=== PATIENT | male | born 1995 ===

== ENCOUNTER 2022-03-12 11:04 | Emergency (ER) | payer BC, OTHER, SELFPAY ==
--- NOTE | ~2022-03-12 | XR_ITS ---
XR foot LT min 3V 03/12/2022 11:30 Indication: Trauma to the left foot Procedure: 4 views left foot Comparison: No prior studies for comparison. Findings: Possible nondisplaced fracture proximal aspect of the first metatarsal. Correlate for point tenderness no significant soft tissue abnormality. Lisfranc joint intact. No foreign bodies. Impression: 1: Possible nondisplaced fracture base of the left first metatarsal. Correlate for point tenderness. Reviewed, dictated and finalized at location A. Impression: 1: Possible nondisplaced fracture base of the left first metatarsal. Correlate for point tenderness.
[2022-03-12 11:16] VITALS: BP 135/82; PULSE 95; RESP 20; TEMP 36.3; O2SAT 99
--- NOTE | 2022-03-12 11:40 | ED.GENADULT ---
HPI - General Adult General Chief complaint: Extremity Injury, Lower Stated complaint: Lt Foot Pain History of Present Illness HPI narrative: Patient is a 26-year-old male who presents [facility] accompanied by mother and significant other for an evaluation a left foot injury that occurred 1-2 nights ago. Patient reports he was intoxicated and accidentally fell while stepping off of a curb. He reports pain, swelling, abrasions to left foot. Sitting alleviates pain. Weightbearing worsens pain. He has been using a boot and a cane while ambulating. Related Data Home Medications Medication Instructions Recorded Confirmed buprenorphine 8 mg-naloxone 2 mg 1 film sublingual DAILY 03/12/22 03/12/22 sublingual film Allergies Allergy/AdvReac Type Severity Reaction Status Date / Time No Known Allergies Allergy Verified 03/12/22 11:29 Review of Systems Review of Systems: Pertinent positive: contusion and difficulty ambulating. Pertinent negatives: calf tenderness, warmth, numbness, tingling, loss of sensation, deformity, decreased range of motion, weakness, difficulty with coordination, nausea, vomiting, lymphadenopathy, shortness of breath, chest pain. PMFSH Social History Social History Smoking status: Never smoker Alcohol intake: current Comments I have reviewed and agree with the patient's past medical, surgical, social, and family hx as documented by the RN. There is no relevant family history pertinent to the presenting complaint. Exam Narrative: GENERAL: Well-appearing, well-nourished, and in no acute distress. HEAD: Normocephalic, atraumatic. NECK: Supple. No Lymphadenopathy or nuchal rigidity appreciated. CHEST: Bilateral lung jeter are clear to auscultation. No respiratory distress. No evidence of cough or pleuritic cp upon examination. HEART: Regular rate and rhythm. No murmur, gallop, or rub heard. EXTREMITIES: Moderate generalized swelling noted to left foot. Point tenderness appreciated over base of left first metatarsal. Multiple minor abrasions noted to dorsal aspect of left foot. Abrasions appear to be healing well. Moderate sized hematoma and generalized swelling appreciated to right first metatarsal. Mild pain is elicited with all active/passive ROM of left foot. Patient ambulates with cane. No evidence of decreased ROM, necrosis, deformity, or puncture. No evidence of dislocation, ligament laxity, effusion, or pain at rest. Pulses palpable at 2+, strength 5/5, and cap refill < 3 seconds in affected extremity. DTRs normal. Gait is slowed SKIN: Warm, dry, no rash. NEURO: No focal deficits. Alert and oriented x3. SPECIAL OBSERVATIONS: Smiling. Laughing. No evidence of discomfort. Course Course Emergency Course: The patient displays adequate decision making capability and despite a detailed discussion of alternatives, benefits, risks, and consequences refuses all x-rays of right foot. Level of Care: Express Care Visit Vital Signs Vital signs: Vital Signs Temperature 97.3 F L 03/12/22 11:16 Pulse Rate 95 03/12/22 11:16 Respiratory Rate 20 03/12/22 11:16 Blood Pressure 135/82 03/12/22 11:16 Pulse Oximetry 99 03/12/22 11:16 Oxygen Delivery Room Air 03/12/22 11:16 Temperature 97.3 F L 03/12/22 11:16 Pulse Rate 95 03/12/22 11:16 Respiratory Rate 20 03/12/22 11:16 Blood Pressure 135/82 03/12/22 11:16 Pulse Oximetry 99 03/12/22 11:16 Oxygen Delivery Room Air 03/12/22 11:16 Reviewed Medical Decision Making Differential Diagnosis Differential Diagnosis: Sprain, strain, cellulitis, open fracture, closed fracture, gout Vital Signs Vital Signs: Vital Signs Temperature 97.3 F L 03/12/22 11:16 Pulse Rate 95 03/12/22 11:16 Respiratory Rate 20 03/12/22 11:16 Blood Pressure 135/82 03/12/22 11:16 Pulse Oximetry 99 03/12/22 11:16 Oxygen Delivery Room
== END 2022-03-12 12:03 | disposition home or self-care (01) ==
PROVIDERS: Emergency Provider Nurse Practitioner Family; PCP Nurse Practitioner Adult Health
DX: S92.315A Nondisplaced fracture of first metatarsal bone, left foot, initial encounter for closed fracture (principal); W10.1XXA Fall (on)(from) sidewalk curb, initial encounter; Z86.16 Personal history of COVID-19
CPT/HCPCS: 73630; 99214; G0463